=== PATIENT | male | born 1965 | race Caucasian/White ===

== ENCOUNTER 2016-06-12 12:30 | Inpatient (IN) | payer OTHER ==
[2016-06-12 14:38] VITALS: BMI 27.4
--- NOTE | 2016-06-12 17:29 | HP ---
COWS - Scale Resting Pulse: 0= [place] 80 or Below Sweatin= Chills/Flushing Restless Observation: 3= Extraneous Movement Pupil Size: 2= Moderately Dilated Bone or Joint Aches: 4=Acute Joint/Muscle Pain Runny Nose/ Eye Tearin= Nasal Congestion GI Upset > 30mins: 1= Stomach Cramp Tremor Observation: 1= Tremor [place], Not Seen Yawning Observation: 1= 1-2x During Session Anxiety or Irritability: 2=Irritable/Anxious Goose Flesh Skin: 0=Smooth Skin COWS Score: 16 CIWA Score - CIWA Score Nausea/Vomitin-No Nausea/No Vomiting Muscle Tremors: 4-Moderate,w/Arms Extend Anxiety: 4-Mod. Anxious/Guarded Agitation: 4-Moderately Restless Paroxysmal Sweats: 1-Minimal Palms Moist Orientation: 0-Oriented Tacttile Disturbances: 3-Moderate Itch/Numb/Burn Auditory Disturbances: 0-None Visual Disturbances: 0-None Headache: 0-None Present CIWA-Ar Total Score: 16 Admission ROS [facility] Chief Complaint: DETOX TX FOR HEROIN AND XANAX DEPENDENCE Allergies/Adverse Reactions: Allergies Allergy/AdvReac Type Severity Reaction Status Date / Time No Known Allergies Allergy Verified 06/12/16 16:15 History of Present Illness: 51 Y/O MALE WITH A HX OF HEROIN,XANAX AND MARIJUANA DEPENDENCE SEEKING DETOX TX. PT STARTS SOBRIETY FROM 1998 TO 2003 BEFORE RELAPSING AGAIN. Exam Limitations: No Limitations - Ebola screening Have you traveled outside of the country in the last 21 days: No Have you had contact with anyone from an Ebola affected area: No Have you been sick,other than usual withdrawal symptoms: No Do you have a fever: No - Review of Systems Constitutional: Chills, Loss of Appetite, Night Sweats, Changes in sleep EENT: reports: Blurred Vision (WEARS CONTACTS), Tearing, Nose Congestion, Dental Problems (MISSING TEETH) Respiratory: reports: No Symptoms reported Cardiac: reports: No Symptoms Reported GI: reports: Constipated, Diarrhea, Nausea, Poor Appetite, Poor Fluid Intake, Vomiting : reports: Dysuria Musculoskeletal: reports: Back Pain, Joint Pain, Muscle Pain Integumentary: reports: No Symptoms Reported Neuro: reports: Headache Endocrine: reports: No Symptoms Reported Hematology: reports: No Symptoms Reported Psychiatric: reports: Orientated x3, Anxious Other Systems: Reviewed and Negative Patient History - Patient Medical History Hx Anemia: No Hx Asthma: No Hx Chronic Obstructive Pulmonary Disease (COPD): No Hx Cardiac Disorders: No Hx Hypertension: No Hx Seizures: No Hx Diabetes: No Hx Gastrointestinal Disorders: No Hx Genitourinary Disorders: No Hx Sexually Transmitted Disorders: No Hx Renal Disease (ESRD): No Hx Human Immunodeficiency Virus (HIV): No (NEGATIVE HX) Hx Hepatitis C: Yes (SINCE 1989-- V. LOAD UNDETECTABLE ) Hx Depression: No (ANXIETY) Hx Suicide Attempt: No (DENIES) Hx Schizophrenia: No - Patient Surgical History Past Surgical History: No Hx Neurologic Surgery: No Hx Cataract Extraction: No Hx Cardiac Surgery: No Hx Lung Surgery: No Hx Breast Surgery: No Hx Breast Biopsy: No Hx Abdominal Surgery: No Hx Appendectomy: No Hx Cholecystectomy: No Hx Genitourinary Surgery: No Hx Orthopedic Surgery: No Anesthesia Reaction: No - PPD History Previous Implant?: Yes Documented Results: Negative w/o proof Implanted On Prior [facility] Admission?: No Results: TBD PPD to be Administered?: Yes - Reproductive History Patient is a Female of Child Bearing Age (11 -55 yrs old): No (MALE) - Smoking Cessation Smoking history: Former smoker Have you smoked in the past 12 months: No If you are a former smoker, when did you quit?: 1999--PT USES A VAPORIZER Hx Chewing Tobacco Use: No Initiated information on smoking cessation: No - Substance & Tx. History Hx Alcohol Use: No (DENIES) Hx Substance Use: Yes (HEROIN/XANAX/MARIJUANA) Substance Use Type: Heroin, Tranquilizers Hx Substance Use Treatment: Yes - Substances Abused Alprazolam (Xanax) Route: Oral Frequency: Daily Amount used: 4-6MG Age of first use: 31 Date of Last Use: 06/11/16 Heroin Route: Inhalation Frequency: Daily Amount used: 10 BAGS Age of first use: 17 Date of Last Use: 06/12/16 Marijuana/Hashish Route: Smoking Frequency: 1-3 times last 30 days Amount used: 1 "TOKE"(PUFF) Age of first use: 13 Date of Last Use: 05/12/16 Family Disease History - Family Disease History Family Disease History: Other: Father (LIVER CIRRHOSIS/ALCOHOLISM-), Brother (ALCOHOLISM/CIRHOSIS-) Admission Physical Exam [facility] - Vital Signs Vital Signs: Vital Signs - 24 hr 06/12/16 14:36 Temperature 96.7 F L Pulse Rate 79 Respiratory 18 Rate Blood Pressure 124/76 - Physical General Appearance: Yes: Moderate Distress, Irritable, Anxious HEENTM: Yes: EOMI, Normocephalic, BRE, Pharynx Normal, Nasal Congestion, Rhinorrhea Respiratory: Yes: Chest Non-Tender, Lungs Clear, Normal Breath Sounds, No Respiratory Distress Neck: Yes: No masses,lesions,Nodules, Supple, Trachea in good position Breast: Yes: Breast Exam Deferred Cardiology: Yes: Regular Rhythm, Regular Rate, S1, S2 Abdominal: Yes: Normal Bowel Sounds, Non Tender, Soft Genitourinary: Yes: Other (N/C) Back: Yes: Within Normal Limits Musculoskeletal: Yes: full range of Motion, Gait Steady Extremities: Yes: Normal Range of Motion, Non-Tender Neurological: Yes: advanced manufacturing engineer II-XII NML intact, Fully Oriented, Alert Integumentary: Yes: Dry, Warm Lymphatic: Yes: Within Normal Limits - Diagnostic (1) Opioid dependence with withdrawal Current Visit: Yes Status: Acute (2) Sedative, hypnotic or anxiolytic dependence with withdrawal, uncomplicated Current Visit: Yes Status: Acute (3) Cannabis dependence, uncomplicated Current Visit: Yes Status: Acute (4) Hx of hepatitis C Current Visit: Yes Status: Chronic Cleared for Admission [facility] - Detox or Rehab [facility] Level of Care: Medically Managed Detox Regimen/Protocol: Methadone/Valium Urine Drug Screen - Results Drug Screen Negative: No Urine Drug Screen Results: THC-Marijuana, OPI-Opiates, BZO-Benzodiazepines, MTD- Methadone
[2016-06-12] MEDS ORDERED: P-EPHED 60MG/TRIPROLIDI 2.5MG TABLET PO PRN (17:56)
[2016-06-12] MEDS ORDERED: ACETAMINOPHEN 325 MG TABLET (FP) PO PRN (17:56)
[2016-06-12] MEDS ORDERED: LOPERAMIDE HCL 2 MG CAPSULE PO PRN (17:56)
[2016-06-12] MEDS ORDERED: IBUPROFEN 400 MG TABLET (FP) PO PRN (17:56)
[2016-06-12] MEDS ORDERED: MENTHOL/PHENOL 1 EACH UD MM PRN (17:56)
[2016-06-12] MEDS ORDERED: guaiFENesin/D-METHORPHAN HB 10 ML UNIT-DOSE CUPS PO PRN (17:56)
[2016-06-12] MEDS ORDERED: MAGNESIUM CITRATE 300 ML BOTTLE PO PRN (17:56)
[2016-06-12] MEDS ORDERED: MAG HYDROX/AL HYDROX/SIMETH 30 ML UNIT-DOSE CUP PO PRN (17:56)
[2016-06-12] MEDS ORDERED: diphenhydrAMINE HCL 50 MG CAPSULE PO PRN (17:56)
[2016-06-12] MEDS ORDERED: MAGNESIUM HYDROX 2400MG/30ML ORAL SUSPENSION 30 ML CUP PO PRN (17:56)
[2016-06-12] MEDS ORDERED: METHADONE HCL 10 MG TABLET (FOR DETOX USE ONLY) PO ONE ×2 (18:45→23:00)
[2016-06-12] MEDS ORDERED: diazePAM 5 MG TABLET PO ONE (18:45)
[2016-06-12] MEDS: THIAMINE HCL 100 MG TABLET (FP) PO SCH (22:22)
[2016-06-12] MEDS: diazePAM 5 MG TABLET PO SCH (22:22)
[2016-06-12 23:07] LABS: URINE APPEARANCE CLEAR; URINE BILIRUBIN NEGATIVE (NEGATIVE); URINE BLOOD NEGATIVE (NEGATIVE); URINE COLOR STRAW; URINE GLUCOSE (UA) NEGATIVE (NEGATIVE); URINE KETONE NEGATIVE (NEGATIVE); URINE LEUK ESTERASE NEGATIVE (NEGATIVE); URINE NITRITE NEGATIVE (NEGATIVE); URINE PROTEIN NEGATIVE (NEGATIVE); URINE UROBILINOGEN NEGATIVE E.U./dl (0.2-1.0)
[2016-06-13] MEDS: diazePAM 5 MG TABLET PO SCH ×3 (05:25→22:19)
[2016-06-13] MEDS ORDERED: METHADONE HCL 10 MG TABLET (FOR DETOX USE ONLY) PO SCH (10:00)
[2016-06-13] MEDS: PRENATAL VITAMINS W/ FOLIC ACID TABLET (FP) PO SCH (10:14)
[2016-06-13] MEDS: PANTOPRAZOLE 40 MG TABLET (FP) PO SCH (10:14)
[2016-06-13] MEDS: diazePAM 5 MG TABLET PO PRN ×2 (10:16→16:57)
--- NOTE | 2016-06-13 10:22 | CONSULT ---
[facility] Psychiatric Consult - Data Date of interview: 06/13/16 Admission source: [facility] Identifying data: [facility] for this 51 y/o male seeking detox treatment on 3 for heroin,benzodiazepine (xanax) and marijuana dependence.Patient is single without children,domiciled,unemployed and deprived of any source of income. Substance Abuse History: - Smoking Cessation. Smoking history: Former smoker. Have you smoked in the past 12 months: No. If you are a former smoker, when did you quit?: 1999--PT USES A VAPORIZER. Hx Chewing Tobacco Use: No. Initiated information on smoking cessation: No. - Substance & Tx. History. Hx Alcohol Use: No (DENIES). Hx Substance Use: Yes (HEROIN/XANAX/MARIJUANA). Substance Use Type: Heroin, Tranquilizers. Hx Substance Use Treatment: Yes. - Substances Abused. Alprazolam (Xanax). Route: Oral. Frequency: Daily. Amount used: 4-6MG. Age of first use: 31. Date of Last Use: 06/11/16. Heroin. Route: Inhalation. Frequency: Daily. Amount used: 10 BAGS. Age of first use: 17. Date of Last Use: 06/12/16. Marijuana/Hashish. Route: Smoking. Frequency: 1-3 times last 30 days. Amount used: 1 "TOKE"(PUFF). Age of first use: 13. Date of Last Use: 05/12/16. Confirmed by patient in this interview. Medical History: Hepatitis C and GERD. Psychiatric History: Patient reports one psychiatric hospitalization at [facility] in 2016 (withdrawal from xanax,as per patient).Not on psychotropic medications.Mr [place] denies history of OPD care.No reported history of suicide attempts. Physical/Sexual Abuse/Trauma History: Patient denies. Additional Comment: Urine Drug Screen Results: THC-Marijuana, OPI-Opiates, BZO- Benzodiazepines, MTD-Methadone.Noted. Mental Status Exam - Mental Status Exam Alert and Oriented to: Time, Place, Person Cognitive Function: Good Patient Appearance: Well Groomed (covered with tattoos) Mood: Nervous (dysphoric), Withdrawn Affect: Mood Congruent Patient Behavior: Appropriate, Cooperative Speech Pattern: Clear Voice Loudness: Normal Thought Process: Goal Oriented Thought Disorder: Not Present Hallucinations: Denies Suicidal Ideation: Denies Homicidal Ideation: Denies Insight/Judgement: Poor Sleep: Poorly, Difficulty falling asleep Appetite: Good Muscle strength/Tone: Rigidity Gait/Station: Normal Psychiatric Findings - Problem List ([place] 1, 2,3) (1) Opioid dependence with withdrawal Current Visit: Yes Status: Acute (2) Sedative, hypnotic or anxiolytic dependence with withdrawal, uncomplicated Current Visit: Yes Status: Acute (3) Cannabis dependence, uncomplicated Current Visit: Yes Status: Acute (4) Substance induced mood disorder Current Visit: Yes Status: Acute (5) Insomnia Current Visit: Yes Status: Acute - Initial Treatment Plan Initial Treatment Plan: Psychoeducation.Detoxification.Zolpidem 10 mg po hs prn.Patient made aware of parasomnias.He agrees with this plan.Observation.
[2016-06-13 10:30] LABS: MCH 28.8 pg (25.7-33.7); MEAN CELL VOLUME 87.2 fl (80-96); MEAN PLT VOLUME 9.2 fl (7.5-11.1); PLATELET COUNT 286 K/MM3 (134-434); RDW 13.3 % (11.9-15.9); WHITE BLOOD COUNT 7.8 K/mm3 (4.0-10.0)
--- NOTE | 2016-06-13 10:32 | PN ---
[facility] CIWA - CIWA Score Nausea/Vomitin-Mild Nausea/No Vomiting Muscle Tremors: 4-Moderate,w/Arms Extend Anxiety: 4-Mod. Anxious/Guarded Agitation: 4-Moderately Restless Paroxysmal Sweats: 3 Orientation: 1-Uncertain about Date Tacttile Disturbances: 0-None Auditory Disturbances: 0-None Visual Disturbances: 0-None Headache: 0-None Present CIWA-Ar Total Score: 17 [facility] COWS - Scale Resting Pulse: 2= [place] 101-120 Sweatin=Flushed/Facial Moisture Restless Observation: 1= Difficult to Sit Still Pupil Size: 0= Normal to Room Light Bone or Joint Aches: 2= Severe Diffuse Aches Runny Nose/ Eye Tearin= Runny Nose/Eyes GI Upset > 30mins: 2= Nausea/Diarrhea Tremor Observation of Outstretched Hands: 2= Slight Tremor Visible Yawning Observation: 1= 1-2x During Session Anxiety or Irritability: 2=Irritable/Anxious Goose Flesh Skin: 0=Smooth Skin COWS Score: 16 S Progress Note (SOAP) Subjective: Anxiety,tremors,sweating,interrupted sleep,restless,runny nose,teary eyes,body aches. Objective: 06/13/16 10:30 Last Vital Signs Temp Pulse Resp BP Pulse Ox 98.1 F 113 H 18 129/79 06/13/16 09:46 06/13/16 09:46 06/13/16 09:46 06/13/16 09:46 Laboratory Tests 06/12/16 22:50 Urine Color Straw Urine Appearance Clear Urine pH 7.0 Ur Specific [place] 1.003 Urine Protein Negative Urine Glucose (UA) Negative Urine Ketones Negative Urine Blood Negative Urine Nitrite Negative Urine Bilirubin Negative Urine Urobilinogen Negative Ur Leukocyte Esterase Negative u/a noted Assessment: 06/13/16 10:31 Withdrawal sx. Plan: Continue detox
[2016-06-13 10:50] LABS: ALK PHOS 58 U/L (45-117); ANION GAP 12 (8-16); BILIRUBIN,TOTAL 0.4 mg/dL (0.2-1.0); CO2 25 mmol/L (21-32); CREATININE 0.7 mg/dL (0.7-1.3); GLUCOSE,RANDOM 80 mg/dL (74-106); SGOT/AST 26 U/L (15-37); SGPT/ALT 34 U/L (12-78); TOT PROT 7.5 g/dl (6.4-8.2)
--- NOTE | 2016-06-13 11:07 | EKG ---
Test Reason : Blood Pressure : / mmHG Vent. Rate : 076 BPM Atrial Rate : 076 BPM P-R Int : 146 ms QRS Dur : 090 ms QT Int : 408 ms P-R-T Axes : 070 073 062 degrees QTc Int : 459 ms NORMAL SINUS RHYTHM NORMAL ECG NO PREVIOUS ECGS AVAILABLE Confirmed by THOMAS POON, ANIA ([id number]) on 06/13/2016 11:07:11 AM Referred By: Marcelo Lara Confirmed By:ANIA GUZMAN MD
[2016-06-13] MEDS: THIAMINE HCL 100 MG TABLET (FP) PO SCH (22:19)
[2016-06-13] MEDS: ZOLPIDEM TARTRATE 10 MG TABLET (PARK CARE ONLY) PO PRN (22:20)
[2016-06-14] MEDS: diazePAM 5 MG TABLET PO PRN ×3 (05:24→17:11)
[2016-06-14] MEDS: PANTOPRAZOLE 40 MG TABLET (FP) PO SCH (10:13)
[2016-06-14] MEDS: PRENATAL VITAMINS W/ FOLIC ACID TABLET (FP) PO SCH (10:13)
[2016-06-14] MEDS: diazePAM 5 MG TABLET PO SCH ×2 (10:14→22:13)
[2016-06-14] MEDS: METHADONE HCL 5 MG TABLET (FOR DETOX USE ONLY) PO SCH (10:14)
--- NOTE | 2016-06-14 14:28 | PN ---
[facility] CIWA - CIWA Score Nausea/Vomitin-Mild Nausea/No Vomiting Muscle Tremors: 4-Moderate,w/Arms Extend Anxiety: 4-Mod. Anxious/Guarded Agitation: 3 Paroxysmal Sweats: 3 Orientation: 0-Oriented Tacttile Disturbances: 0-None Auditory Disturbances: 0-None Visual Disturbances: 0-None Headache: 0-None Present CIWA-Ar Total Score: 15 S COWS - Scale Resting Pulse: 2= [place] 101-120 Sweatin=Flushed/Facial Moisture Restless Observation: 1= Difficult to Sit Still Pupil Size: 0= Normal to Room Light Bone or Joint Aches: 1= Mild Discomfort Runny Nose/ Eye Tearin= Runny Nose/Eyes GI Upset > 30mins: 2= Nausea/Diarrhea Tremor Observation of Outstretched Hands: 2= Slight Tremor Visible Yawning Observation: 1= 1-2x During Session Anxiety or Irritability: 2=Irritable/Anxious Goose Flesh Skin: 0=Smooth Skin COWS Score: 15 [facility] Progress Note (SOAP) Subjective: Sweating,interrupted sleep,restless Objective: 06/14/16 14:27 Vital Signs - 8 hr 06/14/16 06/14/16 09:45 13:09 Temperature 96.8 F L 97.3 F L Pulse Rate 109 H 96 H Respiratory 20 20 Rate Blood Pressure 128/86 134/89 Laboratory Tests 06/12/16 06/12/16 06/13/16 06:00 22:50 06:00 WBC 7.8 RBC 5.04 Hgb 14.5 Hct 43.9 MCV 87.2 MCHC 33.0 RDW 13.3 Plt Count 286 MPV 9.2 Sodium Potassium Chloride Carbon Dioxide Anion Gap BUN Creatinine Creat Clearance w eGFR Random Glucose Calcium Total Bilirubin AST ALT Alkaline Phosphatase Total Protein Albumin Urine Color Straw Urine Appearance Clear Urine pH 7.0 Ur Specific [place] 1.003 Urine Protein Negative Urine Glucose (UA) Negative Urine Ketones Negative Urine Blood Negative Urine Nitrite Negative Urine Bilirubin Negative Urine Urobilinogen Negative Ur Leukocyte Esterase Negative RPR Titer Hepatitis C Antibody >11.0 H 06/13/16 06/13/16 06:00 06:00 WBC RBC Hgb Hct MCV MCHC RDW Plt Count MPV Sodium 135 L Potassium 4.4 Chloride 98 Carbon Dioxide 25 Anion Gap 12 BUN 10 Creatinine 0.7 Creat Clearance w eGFR > 60 Random Glucose 80 Calcium 9.0 Total Bilirubin 0.4 AST 26 ALT 34 Alkaline Phosphatase 58 Total Protein 7.5 Albumin 3.0 L Urine Color Urine Appearance Urine pH Ur Specific [place] Urine Protein Urine Glucose (UA) Urine Ketones Urine Blood Urine Nitrite Urine Bilirubin Urine Urobilinogen Ur Leukocyte Esterase RPR Titer Nonreactive Hepatitis C Antibody labs noted Assessment: 06/14/16 14:27 Withdrawal sx. Plan: Continue detox
[2016-06-14] MEDS: THIAMINE HCL 100 MG TABLET (FP) PO SCH (22:13)
[2016-06-14] MEDS: ZOLPIDEM TARTRATE 10 MG TABLET (PARK CARE ONLY) PO PRN (22:14)
[2016-06-15] MEDS: diazePAM 5 MG TABLET PO PRN ×3 (06:09→17:55)
[2016-06-15] MEDS ORDERED: ONDANSETRON *ODT* 4 MG TABLET SL ONE (10:10)
[2016-06-15] MEDS ORDERED: ONDANSETRON *ODT* 4 MG TABLET SL PRN (10:10)
--- NOTE | 2016-06-15 10:15 | PN ---
[facility] Progress Note (SOAP) Subjective: Sweating,interrupted sleep,restless Objective: 06/15/16 10:13 Vital Signs - 8 hr 06/15/16 06/15/16 06/15/16 03:30 07:00 09:32 Temperature 98.0 F 96.5 F L Pulse Rate 80 114 H Respiratory 18 20 18 Rate Blood Pressure 112/76 154/87 Laboratory Tests 06/12/16 06/12/16 06/13/16 06:00 22:50 06:00 WBC 7.8 RBC 5.04 Hgb 14.5 Hct 43.9 MCV 87.2 MCHC 33.0 RDW 13.3 Plt Count 286 MPV 9.2 Sodium Potassium Chloride Carbon Dioxide Anion Gap BUN Creatinine Creat Clearance w eGFR Random Glucose Calcium Total Bilirubin AST ALT Alkaline Phosphatase Total Protein Albumin Urine Color Straw Urine Appearance Clear Urine pH 7.0 Ur Specific [place] 1.003 Urine Protein Negative Urine Glucose (UA) Negative Urine Ketones Negative Urine Blood Negative Urine Nitrite Negative Urine Bilirubin Negative Urine Urobilinogen Negative Ur Leukocyte Esterase Negative RPR Titer Hepatitis C Antibody >11.0 H 06/13/16 06/13/16 06:00 06:00 WBC RBC Hgb Hct MCV MCHC RDW Plt Count MPV Sodium 135 L Potassium 4.4 Chloride 98 Carbon Dioxide 25 Anion Gap 12 BUN 10 Creatinine 0.7 Creat Clearance w eGFR > 60 Random Glucose 80 Calcium 9.0 Total Bilirubin 0.4 AST 26 ALT 34 Alkaline Phosphatase 58 Total Protein 7.5 Albumin 3.0 L Urine Color Urine Appearance Urine pH Ur Specific [place] Urine Protein Urine Glucose (UA) Urine Ketones Urine Blood Urine Nitrite Urine Bilirubin Urine Urobilinogen Ur Leukocyte Esterase RPR Titer Nonreactive Hepatitis C Antibody labs noted Assessment: 06/15/16 10:14 Withdrawal sx. Plan: Continue detox
[2016-06-15] MEDS: METHADONE HCL 5 MG TABLET (FOR DETOX USE ONLY) PO SCH (10:17)
[2016-06-15] MEDS: PANTOPRAZOLE 40 MG TABLET (FP) PO SCH (10:17)
[2016-06-15] MEDS: PRENATAL VITAMINS W/ FOLIC ACID TABLET (FP) PO SCH (10:17)
[2016-06-15] MEDS: diazePAM 5 MG TABLET PO SCH ×2 (10:17→22:30)
[2016-06-15] MEDS: THIAMINE HCL 100 MG TABLET (FP) PO SCH (22:30)
[2016-06-15] MEDS: ZOLPIDEM TARTRATE 10 MG TABLET (PARK CARE ONLY) PO PRN (22:30)
[2016-06-16 00:06] LABS: HCV LOG 10 6.428 (.)
[2016-06-16] MEDS: hydrOXYzine PAMOATE 25 MG CAPSULE (FP) PO PRN ×2 (05:09→22:29)
[2016-06-16] MEDS ORDERED: METHADONE HCL 10 MG TABLET (FOR DETOX USE ONLY) PO SCH (10:00)
[2016-06-16] MEDS ORDERED: diazePAM 5 MG TABLET PO SCH (10:00)
[2016-06-16] MEDS: PANTOPRAZOLE 40 MG TABLET (FP) PO SCH (10:19)
[2016-06-16] MEDS: PRENATAL VITAMINS W/ FOLIC ACID TABLET (FP) PO SCH (10:19)
--- NOTE | 2016-06-16 11:40 | PN ---
S Progress Note (SOAP) Subjective: ANXIETY,SWEATS,INTERMITTENT SLEEP. Objective: 06/16/16 11:39 Vital Signs Temperature 95.9 F L 06/16/16 09:32 Pulse Rate 117 H 06/16/16 09:32 Respiratory Rate 19 06/16/16 09:32 Blood Pressure 144/88 06/16/16 09:32 O2 Sat by Pulse Oximetry (%) Laboratory Last Values WBC 7.8 K/mm3 (4.0-10.0) 06/13/16 06:00 RBC 5.04 M/mm3 (4.00-5.60) 06/13/16 06:00 Hgb 14.5 GM/dL (11.7-16.9) 06/13/16 06:00 Hct 43.9 % (35.4-49) 06/13/16 06:00 MCV 87.2 fl (80-96) 06/13/16 06:00 MCHC 33.0 g/dl (32.0-35.9) 06/13/16 06:00 RDW 13.3 % (11.9-15.9) 06/13/16 06:00 Plt Count 286 K/MM3 (134-434) 06/13/16 06:00 MPV 9.2 fl (7.5-11.1) 06/13/16 06:00 Sodium 135 mmol/L (136-145) L 06/13/16 06:00 Potassium 4.4 mmol/L (3.5-5.1) 06/13/16 06:00 Chloride 98 mmol/L (98-107) 06/13/16 06:00 Carbon Dioxide 25 mmol/L (21-32) 06/13/16 06:00 Anion Gap 12 (8-16) 06/13/16 06:00 BUN 10 mg/dL (7-18) 06/13/16 06:00 Creatinine 0.7 mg/dL (0.7-1.3) 06/13/16 06:00 Creat Clearance w eGFR > 60 (>60) 06/13/16 06:00 Random Glucose 80 mg/dL (74-106) 06/13/16 06:00 Calcium 9.0 mg/dL (8.5-10.1) 06/13/16 06:00 Total Bilirubin 0.4 mg/dL (0.2-1.0) 06/13/16 06:00 AST 26 U/L (15-37) 06/13/16 06:00 ALT 34 U/L (12-78) 06/13/16 06:00 Alkaline Phosphatase 58 U/L (45-117) 06/13/16 06:00 Total Protein 7.5 g/dl (6.4-8.2) 06/13/16 06:00 Albumin 3.0 g/dl (3.4-5.0) L 06/13/16 06:00 Urine Color Straw 06/12/16 22:50 Urine Appearance Clear 06/12/16 22:50 Urine pH 7.0 (5.0-8.0) 06/12/16 22:50 Ur Specific [place] 1.003 (1.001-1.035) 06/12/16 22:50 Urine Protein Negative (NEGATIVE) 06/12/16 22:50 Urine Glucose (UA) Negative (NEGATIVE) 06/12/16 22:50 Urine Ketones Negative (NEGATIVE) 06/12/16 22:50 Urine Blood Negative (NEGATIVE) 06/12/16 22:50 Urine Nitrite Negative (NEGATIVE) 06/12/16 22:50 Urine Bilirubin Negative (NEGATIVE) 06/12/16 22:50 Urine Urobilinogen Negative E.U./dl (0.2-1.0) 06/12/16 22:50 Ur Leukocyte Esterase Negative (NEGATIVE) 06/12/16 22:50 RPR Titer Nonreactive (NONREACTIVE) 06/13/16 06:00 Hepatitis C Antibody >11.0 s/co ratio (0.0-0.9) H 06/12/16 06:00 HCV Quantitation [id number] IU/mL (.) 06/14/16 08:11 HCV RNA log copies/mL 6.428 (.) 06/14/16 08:11 HX HEP C Assessment: 06/16/16 11:40 WITHDRAWAL SX Plan: CONTINUE DETOX COPY OF LAB RESULT GIVEN TO PT FOR F/U WITH PMD.
[2016-06-16] MEDS: THIAMINE HCL 100 MG TABLET (FP) PO SCH (22:27)
[2016-06-17] MEDS ORDERED: METHADONE HCL 5 MG TABLET (FOR DETOX USE ONLY) PO SCH (06:00)
[2016-06-17 09:40] VITALS: BP 109/74; PULSE 101; TEMP 97.4
[2016-06-17] MEDS: PRENATAL VITAMINS W/ FOLIC ACID TABLET (FP) PO SCH (10:11)
[2016-06-17] MEDS: PANTOPRAZOLE 40 MG TABLET (FP) PO SCH (10:11)
--- NOTE | 2016-06-17 10:14 | DS ---
[facility] Detox Discharge Summary Admission Date: 06/12/16 Discharge Date: 06/17/16 - History Present History: Cannabis Dependence, Opioid Dependence, Sedative Dependence - Physical Exam Results Vital Signs: Vital Signs Temperature 97.4 F L 06/17/16 09:39 Pulse Rate 101 H 06/17/16 09:39 Respiratory Rate 2 L 06/17/16 09:39 Blood Pressure 109/74 06/17/16 09:39 O2 Sat by Pulse Oximetry (%) Laboratory Tests 06/12/16 06/12/16 06/13/16 06:00 22:50 06:00 WBC 7.8 RBC 5.04 Hgb 14.5 Hct 43.9 MCV 87.2 MCHC 33.0 RDW 13.3 Plt Count 286 MPV 9.2 Sodium Potassium Chloride Carbon Dioxide Anion Gap BUN Creatinine Creat Clearance w eGFR Random Glucose Calcium Total Bilirubin AST ALT Alkaline Phosphatase Total Protein Albumin Urine Color Straw Urine Appearance Clear Urine pH 7.0 Ur Specific [place] 1.003 Urine Protein Negative Urine Glucose (UA) Negative Urine Ketones Negative Urine Blood Negative Urine Nitrite Negative Urine Bilirubin Negative Urine Urobilinogen Negative Ur Leukocyte Esterase Negative RPR Titer Hepatitis C Antibody >11.0 H HCV Quantitation HCV RNA log copies/mL 06/13/16 06/13/16 06/14/16 06:00 06:00 08:11 WBC RBC Hgb Hct MCV MCHC RDW Plt Count MPV Sodium 135 L Potassium 4.4 Chloride 98 Carbon Dioxide 25 Anion Gap 12 BUN 10 Creatinine 0.7 Creat Clearance w eGFR > 60 Random Glucose 80 Calcium 9.0 Total Bilirubin 0.4 AST 26 ALT 34 Alkaline Phosphatase 58 Total Protein 7.5 Albumin 3.0 L Urine Color Urine Appearance Urine pH Ur Specific [place] Urine Protein Urine Glucose (UA) Urine Ketones Urine Blood Urine Nitrite Urine Bilirubin Urine Urobilinogen Ur Leukocyte Esterase RPR Titer Nonreactive Hepatitis C Antibody HCV Quantitation [id number] HCV RNA log copies/mL 6.428 labs noted repeat HR 98 Pertinent Admission Physical Exam Findings: Withdrawal Symptoms - Medication Discharge Medications: Ambulatory Orders Omeprazole 20 mg PO DAILY 06/12/16 - Diagnosis (1) Cannabis dependence, uncomplicated Current Visit: Yes Status: Acute (2) Insomnia Current Visit: Yes Status: Acute (3) Opioid dependence with withdrawal Current Visit: Yes Status: Acute (4) Sedative, hypnotic or anxiolytic dependence with withdrawal, uncomplicated Current Visit: Yes Status: Acute (5) Substance induced mood disorder Current Visit: Yes Status: Acute (6) Hx of hepatitis C Current Visit: Yes Status: Chronic - AMA Did Patient Leave Against Medical Advice: No
== END 2016-06-17 10:52 | disposition home or self-care (01) | DRG 773 ==
LOC: YASAS 12:30 → Y3N 17:51
PROVIDERS: ADMIT Internal Medicine; ATTEND Internal Medicine
PROC: HZ2ZZZZ Detoxification Services for Substance Abuse Treatment (ICD-10-PCS; principal; 2016-06-17)
DX: F11.23 Opioid dependence with withdrawal (principal); F13.230 Sedative, hypnotic or anxiolytic dependence with withdrawal, uncomplicated; F12.20 Cannabis dependence, uncomplicated; F19.24 Other psychoactive substance dependence with psychoactive substance-induced mood disorder; G47.00 Insomnia, unspecified; B18.2 Chronic viral hepatitis C
CPT/HCPCS: 36415; 80053; 81003; 85027; 86593; 87522; 93005; 93010